=== PATIENT | male | born 1955 | race Caucasian/White ===

== ENCOUNTER 2018-02-04 10:38 | Emergency (ER) | payer BC ==
[2018-02-04 11:50] VITALS: BP 129/74
--- NOTE | 2018-02-04 12:05 | UC ---
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 Did not feel dehydrated. No chest pain or SOG associated. Lasted off and on fro 3 hours. Yesterday, similar shorter episode. Had right hand heaviness on Monday, thinking that it was difficult to write. Arm felt heavy. No dysarthria, headache, sided weakness, balance loss or vertigo. Took ASA x 2 on Monday and "felt better" He chose to come here to check out all of his symptoms. Normal blood pressure, has been on Crestor and ASA x years, stress test normal 2 years ago. - History Of Current Complaint Chief Complaint: UCGeneralIllness Stated Complaint: GI COMPLAINT Time Seen by Provider: 02/04/18 12:04 Hx Obtained From: Patient Onset/Duration: Gradual Onset, Lasting Days - 3 Timing: Hours Severity Initially: Mild Severity Currently: Mild Pain Intensity: 6 Character: Lightheaded, Weak Aggravating Factor(s): Nothing Alleviating Factor(s): Rest - Allergies/Home Medications Allergies/Adverse Reactions: Allergies Allergy/AdvReac Type Severity Reaction Status Date / Time codeine Allergy Unknown aggitation Verified 02/04/18 11:33 diphenhydramine Allergy Unknown Rash Verified 02/04/18 11:33 [From Benjuan miguell] Home Medications: Home Medications Acetaminophen TAB* [Tylenol TAB*] 650 mg PO Q4H PRN 02/04/18 [History Confirmed 02/04/18] Aspirin TAB* [Aspirin 325 MG TAB*] 650 mg PO Q6H PRN 02/04/18 [History Confirmed 02/04/18] Cholecalciferol TAB* [Vitamin D TAB*] 1,000 unit PO DAILY 02/04/18 [History Confirmed 02/04/18] Lactobacillus Combo No.10 [Probiotic] 1 each PO 02/04/18 [History] Omeprazole 40 mg PO DAILY 02/04/18 [History Confirmed 02/04/18] Rosuvastatin Calcium [Crestor] 20 mg PO DAILY 02/04/18 [History Confirmed ] PMH/Surg Hx/FS Hx/Imm Hx Cardiovascular History: Other - high cholesterol Other Cardiovascular History: hypercholesteromia GI/ History: Diverticulitis - Surgical History Surgical History: Yes Surgery Procedure, Year, and Place: BACK SURGERY,L 5, S1,09/2014-10/27 [facility] HERNIA REPAIR.TONSILECTOMY. WISDOM TEETH. COLONOSCOPY AND DGASTROSCOPE DECEMBER 2017 - Family History Known Family History: Positive: Cardiac Disease - father had CABG, age 80 - Social History Occupation: Employed Full-time Lives: With Family Alcohol Use: Occasionally Substance Use Type: None Smoking Status (MU): Never Smoked Tobacco Review of Systems Constitutional: Negative, Other - has lost 6 pounds with intent and his cholesterol is better on recent checks. Skin: Negative Eyes: Negative ENT: Negative Respiratory: Negative Cardiovascular: Other - dizziness Gastrointestinal: Other - hx diverticulitis Genitourinary: Negative Motor: Negative Neurovascular: Negative Musculoskeletal: Negative Neurological: Negative Psychological: Anxious Is Patient Immunocompromised?: No All Other Systems Reviewed And Are Negative: Yes Physical Exam Triage Information Reviewed: Yes Appearance: Well-Appearing, No Pain Distress, Obese Vital Signs: Initial Vital Signs Temp 98.9 F 02/04/18 11:33 Pulse 77 02/04/18 11:33 Resp 18 02/04/18 11:33 BP 129/74 02/04/18 11:33 Pulse Ox 98 02/04/18 11:33 Eye Exam: Normal, Other - normal EOM, normal visual hernandez by confrontation. Eyes: Positive: Conjunctiva Clear ENT: Positive: Pharynx normal, TMs normal Neck: Positive: Supple, Nontender, No Lymphadenopathy Respiratory: Positive: Lungs clear, Normal breath sounds Cardiovascular: Positive: RRR, No Murmur Abdomen Description: Positive: No Organomegaly, Soft Bowel Sounds: Positive: Present Musculoskeletal Exam: Normal Neurological Exam: Other - no pronator drift. Right arm with normal strength, + Phalen's at the wrist. Neurological: Positive: Alert, Muscle Tone Normal Psychological Exam: Normal Skin Exam: Normal Diagnostics - EKG Cardiac Rate: NL Cardiac Rhythm: Sinus: Normal Ectopy: PVCs - 1 ST Segment: Normal Dizzy Course/Dx - Course Course Of Treatment: discussed no signs of stroke or heart attack; discussed appropriate eval if has symptoms suggesting stroke or heart attack. --advised follow up with PMD to review sx, health, discuss further eval. - Differential Dx/Diagnosis Differential Diagnosis/HQI/PQRI: CVA, Hyperventilation, Myocardial Infarction, Transient Ischemic Attack, Vasovagal Reaction Provider Diagnoses: dizziness NYD, no acute findings. possible right carpal tunnel syndrome. Discharge - Sign-Out/Discharge Documenting (check all that apply): Discharge/Admit/Transfer - Discharge Plan Condition: Stable Disposition: HOME Patient Education Materials: Lightheadedness (ED), Carpal Tunnel Surgery (DC) Referrals: Anil Malik MD [Primary Care Provider] - Additional Instructions: As reviewed, no specific cause can be found for your symptoms. I suggest follow up with Dr. Malik to review health concerns and decide if futher testing is needed. Ensure adequate sleep, hydration and make efforts to follow a heart healthy diet. It is possibe that you need testing to check if you are developing right carpal tunnel syndrome. - Billing Disposition and Condition Condition: STABLE Disposition: Home
== END 2018-02-04 13:00 | disposition home or self-care (01) ==
LOC: UCCORT 10:38
DX: R42 Dizziness and giddiness (principal); Z88.5 Allergy status to narcotic agent; Z88.8 Allergy status to other drugs, medicaments and biological substances
CPT/HCPCS: 93005; 99211; G0463

== ENCOUNTER 2019-05-30 17:20 | Emergency (ER) | payer BC ==
[2019-05-30 17:44] VITALS: BP 115/62
--- NOTE | 2019-05-30 18:52 | UC ---
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 Progressively worsened, and now has bilateral groin pain. Intermittent nausea, no vomitting. No burning or pain during urination. Feels fatigued and weak. " -pt srated 05/28/19 w/ pain at 4/10. pain is progressive and constant. Nml BMs but hasnt gone today. + flatulance. appetite nml -has had diverticulits but this feels different. no blood or melena. no dysuria. strill has appendix. pain into b/l groin. no bulging. -no fevers/cghills. took "500mgs SALVADOR at 11 AM", perhaps it was something else but insists on 500mgs. - is in [place] visiting their dtr - History of Current Complaint Chief Complaint: UCAbdominalPain Stated Complaint: NAUSEA, CRAMPING Time Seen by Provider: 05/30/19 18:03 Pain Intensity: 8 - Allergies/Home Medications Allergies/Adverse Reactions: Allergies Allergy/AdvReac Type Severity Reaction Status Date / Time codeine Allergy Unknown aggitation Verified 02/04/18 11:33 diphenhydramine Allergy Unknown Rash Verified 02/04/18 11:33 [From Benadryl] PMH/Surg Hx/FS Hx/Imm Hx Previously Healthy: Yes Endocrine History: Dyslipidemia - Surgical History Surgical History: Yes Surgery Procedure, Year, and Place: BACK SURGERY,L 5, S1,09/2014-10/27 [facility] HERNIA REPA[facility].TONSILECTOMY. WISDOM TEETH. COLONOSCOPY AND DGASTROSCOPE DECEMBER 2017 - Family History Known Family History: Positive: Cardiac Disease - father had CABG, age 80 - Social History Alcohol Use: Occasionally Substance Use Type: None Smoking Status (MU): Never Smoked Tobacco Review of Systems All Other Systems Reviewed And Are Negative: Yes Constitutional: Positive: Negative, Fatigue. Negative: Fever, Chills Skin: Positive: Negative. Negative: Rash Eyes: Positive: Negative ENT: Positive: Negative Respiratory: Positive: Negative. Negative: Cough Cardiovascular: Positive: Negative. Negative: Palpitations, Chest Pain Gastrointestinal: Positive: Abdominal Pain. Negative: Vomiting, Diarrhea, Nausea Genitourinary: Positive: Negative. Negative: Dysuria, Hematuria Motor: Positive: Negative Neurovascular: Positive: Negative Musculoskeletal: Positive: Negative Neurological: Positive: Negative Psychological: Positive: Negative Is Patient Immunocompromised?: No Physical Exam Triage Information Reviewed: Yes Appearance: Ill-Appearing - moderate discfort. moves slowly d/t discomfort Vital Signs: Initial Vital Signs Temp 97.8 F 05/30/19 17:41 Pulse 79 05/30/19 17:41 Resp 16 05/30/19 17:41 BP 115/62 05/30/19 17:41 Pulse Ox 100 05/30/19 17:41 Vital Signs Reviewed: Yes Eye Exam: Normal Eyes: Positive: Other: - no icterus ENT Exam: Normal ENT: Positive: Pharynx normal Neck exam: Normal Neck: Positive: Supple, Nontender, No Lymphadenopathy Respiratory Exam: Normal Respiratory: Positive: Lungs clear, Normal breath sounds, No respiratory distress, No accessory muscle use. Negative: Crackles, Rhonchi, Stridor, Wheezing Cardiovascular Exam: Normal Cardiovascular: Positive: RRR, No Murmur, Pulses Normal Abdomen Description: Positive: Distended, Guarding, Peritoneal Signs - + rebound mild, + guarding. + distended. + tender at RLQ, LLQ and umbilical area. + BS.. Negative: Bruit, CVA Tenderness (R), CVA Tenderness (L), Pulsatile Mass , Splenomegaly Bowel Sounds: Positive: Present Musculoskeletal Exam: Normal Neurological Exam: Normal Psychological Exam: Normal Skin Exam: Normal Abd Pain Male Course/Dx - Course Course Of Treatment: -explained need for CT w/ contrast and stat labs. discussed acute abdomen w/ concern of possibel AAA, perforation, appendix. he refsues ambulance AMA and has signed ppwk. he assures me that he will go directly to the ER and not stop anywhere on the way, to not eat or drink anything either. - Differential Dx/Clinical Impression Differential Diagnosis/HQI/PQRI: Abdominal Aortic Aneurysm, Appendicitis, Bowel Obstruction, Constipation, Diverticulitis, Testicular Torsion Provider Diagnosis: Abdominal pain Discharge ED - Sign-Out/Discharge Documenting (check all that apply): Patient Departure All imaging exams completed and their final reports reviewed: No Studies - Discharge Plan Condition: Fair Disposition: AGAINST MEDICAL ADVICE Referrals: Anil Malik MD [Primary Care Provider] - - Billing Disposition and Condition Condition: FAIR Disposition: Against Medical Advice
== END 2019-05-30 19:01 | disposition left against medical advice (07) ==
LOC: UCCORT 17:20
DX: R10.32 Left lower quadrant pain (principal); R10.31 Right lower quadrant pain; R11.0 Nausea; R14.3 Flatulence; K57.92 Diverticulitis of intestine, part unspecified, without perforation or abscess without bleeding; Z88.5 Allergy status to narcotic agent; Z88.8 Allergy status to other drugs, medicaments and biological substances
CPT/HCPCS: 99212; G0463